=== PATIENT | male | born 1940 | race Caucasian/White ===

== ENCOUNTER 2022-04-27 09:01 | Outpatient (CLI) | payer MEDICARE, BC ==
[2022-04-27] MEDS ORDERED: Iopamidol 300 61% 100 ML VIAL FS ONE (13:20)
== END 2022-04-27 09:02 | disposition home or self-care (01) ==
LOC: CSHCT 09:01
PROVIDERS: ATTEND Family Medicine
DX: R31.0 Gross hematuria (principal); N28.1 Cyst of kidney, acquired; N40.0 Benign prostatic hyperplasia without lower urinary tract symptoms; N32.9 Bladder disorder, unspecified; K76.89 Other specified diseases of liver; K57.30 Diverticulosis of large intestine without perforation or abscess without bleeding
CPT/HCPCS: 74178; 82565; Q9967

== ENCOUNTER 2023-07-05 08:38 | Inpatient (IN) | payer MEDICARE, BC ==
[2023-07-05 09:21] LABS: #Basophils 0.1 10x3/uL (0.0-0.2); #Eosinphils 0.1 10x3/uL (0.0-0.5); #Monocytes 0.9 10x3/uL (0.0-1.1); #Neutrophils 6.9 10x3/uL (1.5-8.4); %Basophils 0.6 % (0.0-2.0); %Eosinophils 0.9 % (0.0-6.0); %Lymphocytes 10.1 % (18.0-47.0); %Monocytes 9.8 % (0.0-10.0); %Neutrophils 78.4 % (40.0-75.0); Hematocrit 41.4 % (38.8-50.0); Hemoglobin 14.2 g/dL (13.5-17.5); Mean Corpuscular HGB CONC 34.3 g/dL (32.0-36.0); Mean Corpuscular Hemoglobin 31.1 pg (27.0-33.0); Mean Corpuscular Volume 90.8 fl (81.2-95.1); Mean Platelet Volume 10.2 fl (7.4-10.4); Platelet Count 267 10x3/uL (150-450); RBC Distribution Width 12.6 % (11.5-14.5); Red Blood Cell (RBC) Count 4.56 10x6/uL (4.32-5.72); White Blood Cell (WBC) Count 8.8 10x3/uL (3.5-10.5)
[2023-07-05 09:22] LABS: INR-International Normal Ratio 1.1; PTT 30.7 sec (22.0-33.0); Prothrombin Time 12.1 sec (9.5-12.1)
[2023-07-05 09:31] LABS: ALT (SGPT) 12 U/L (8-55); AST (SGOT) 21 U/L (5-34); Albumin 3.8 g/dL (3.4-4.8); Alkaline Phosphatase 66 U/L (40-110); Anion Gap 17 mmol/L (10-20); BUN (Urea Nitrogen) 27 mg/dL (8.4-25.7); Calc. Creatinine Clearance 0 mL/min (70-130); Carbon Dioxide 23 mmol/L (23-31); Chloride 104 mmol/L (98-107); Estimated GFR 69; Globulin 2.6 g/dL (2.4-3.5); Glucose 121 mg/dL (83-110); Potassium 3.8 mmol/L (3.5-5.1); Protein, Total 6.4 g/dL (5.8-8.1); Sodium 140 mmol/L (136-145)
[2023-07-05 09:32] LABS: Troponin I 0.019 ng/mL (< 0.028)
[2023-07-05] MEDS ORDERED: Aspirin Chewable 81 MG TAB ONE (09:46)
[2023-07-05 10:20] LABS: Bilirubin Neg (Negative); Blood, Urine 25 (Negative); Clarity Clear (Clear); Glucose, Urine (Dipstick) Normal (Negative); Ketone, Urine 50 mg/dL (Negative); Leukocyte 25 (Negative); Nitrite Negative (Negative); Protein, Urine (Dipstick) 30 mg/dl (Neg-Trace)
[2023-07-05 10:45] LABS: Bacteria/HPF 1+ HPF (None Seen); CAUTI Indications for Culture Alt mental st,lethar; RBC/HPF 0-3 HPF (0-3); Squamous Epithelial 0-3 HPF (0-3)
[2023-07-05 10:47] LABS: Urine Culture Reflex Yes Yes
[2023-07-05] MEDS ORDERED: Ondansetron ODT 4 MG TAB PO PRN (12:18)
[2023-07-05] MEDS ORDERED: Acetaminophen 325 MG TAB PO PRN (12:18)
[2023-07-05] MEDS ORDERED: hydrALAZINE 20 MG/ML VIAL SLOW IVP PRN (12:18)
[2023-07-05] MEDS ORDERED: Acetaminophen 650 MG Suppository PR PRN (12:18)
[2023-07-05] MEDS ORDERED: Ondansetron PF 4 MG/2 ML Vial IVP PRN (12:18)
[2023-07-05 13:03] LABS: Troponin I 0.016 ng/mL (< 0.028)
[2023-07-05] MEDS ORDERED: Iopamidol 370 76% 100 ML VIAL ONE (14:22)
[2023-07-05 15:23] LABS: Troponin I 0.022 ng/mL (< 0.028)
[2023-07-05 16:51] VITALS: BMI 24.3
[2023-07-05] MEDS ORDERED: cefTRIAXone\\ROCEPHIN 1 GM in Sodium Chloride 0.9% 100 ML IVPB SCH (18:30)
[2023-07-05] MEDS ORDERED: FLU VACC QS2023(65UP)/MF59C/PF 60 MCG/0.5 ML SYRINGE IM ONE (20:00)
[2023-07-05] MEDS ORDERED: Atorvastatin Calcium 40 MG TAB PO SCH (21:00)
[2023-07-06 03:56] LABS: #Basophils 0.1 10x3/uL (0.0-0.2); #Eosinphils 0.1 10x3/uL (0.0-0.5); #Monocytes 0.7 10x3/uL (0.0-1.1); #Neutrophils 5.5 10x3/uL (1.5-8.4); %Basophils 0.8 % (0.0-2.0); %Eosinophils 1.6 % (0.0-6.0); %Lymphocytes 13.9 % (18.0-47.0); %Monocytes 9.2 % (0.0-10.0); %Neutrophils 74.1 % (40.0-75.0); Hematocrit 41.9 % (38.8-50.0); Hemoglobin 14.3 g/dL (13.5-17.5); Mean Corpuscular HGB CONC 34.1 g/dL (32.0-36.0); Mean Corpuscular Hemoglobin 31.3 pg (27.0-33.0); Mean Corpuscular Volume 91.7 fl (81.2-95.1); Mean Platelet Volume 10.7 fl (7.4-10.4); Platelet Count 237 10x3/uL (150-450); RBC Distribution Width 12.4 % (11.5-14.5); Red Blood Cell (RBC) Count 4.57 10x6/uL (4.32-5.72); White Blood Cell (WBC) Count 7.5 10x3/uL (3.5-10.5)
[2023-07-06 04:22] LABS: Anion Gap 12 mmol/L (10-20); BUN (Urea Nitrogen) 18 mg/dL (8.4-25.7); Calc. Creatinine Clearance 76 mL/min (70-130); Calcium 8.6 mg/dL (7.8-10.44); Carbon Dioxide 26 mmol/L (23-31); Cardiac Risk 2.7 (Less than 4.5); Chloride 106 mmol/L (98-107); Cholesterol 152 mg/dl (< 200 Desired); Estimated GFR 88; Glucose 98 mg/dL (83-110); HDL Cholesterol 57 mg/dL (>60 Neg Risk); LDL Cholesterol, Calculated 83 mg/dL; Potassium 3.9 mmol/L (3.5-5.1); Sodium 140 mmol/L (136-145); Triglycerides 61 mg/dL (Less than 150)
[2023-07-06] MEDS ORDERED: Aspirin 81 mg Enteric Coated Tablet PO SCH (09:00)
[2023-07-06 12:55] VITALS: BP 176/81; TEMP 97.6
[2023-07-07] MEDS ORDERED: Tamsulosin HCl 0.4 MG CAP PO SCH (09:00)
== END 2023-07-06 12:45 | disposition home or self-care (01) | DRG 69 ==
LOC: CSHERS 08:38 → CSHTELE 10:47 → OBSVTOIN 07-06 09:24
PROVIDERS: ADMIT Internal Medicine; ATTEND Internal Medicine
DX: G45.9 Transient cerebral ischemic attack, unspecified (principal); N13.6 Pyonephrosis; G81.91 Hemiplegia, unspecified affecting right dominant side; I10 Essential (primary) hypertension; M89.9 Disorder of bone, unspecified; F32.A Depression, unspecified; C61 Malignant neoplasm of prostate; Z90.49 Acquired absence of other specified parts of digestive tract; Z90.89 Acquired absence of other organs; Z79.899 Other long term (current) drug therapy; Z79.82 Long term (current) use of aspirin
CPT/HCPCS: 0042T; 36415; 36416; 70450; 70551; 74176; 76770; 80048; 80053; 80061; 81001; 84484; 85025; 85610; 85730; 87086; 93005; 93306; J0696; J1650; J3490; Q9967

== ENCOUNTER 2023-11-30 09:52 | Outpatient (CLI) | payer MEDICARE | END 2023-11-30 09:53 | disposition home or self-care (01) | LOC: CSHULT 09:52 | PROVIDERS: ATTEND Urology | DX: N50.89 Other specified disorders of the male genital organs (principal); N13.2 Hydronephrosis with renal and ureteral calculous obstruction; N50.3 Cyst of epididymis; N13.30 Unspecified hydronephrosis | CPT/HCPCS: 76770; 76870 ==

== ENCOUNTER 2025-05-13 12:30 | Outpatient (CLI) | payer MEDICARE | END 2025-05-13 12:31 | disposition home or self-care (01) | LOC: CSHWCC 12:30 | PROVIDERS: ATTEND Nurse Practitioner Family | DX: N30.41 Irradiation cystitis with hematuria (principal) | CPT/HCPCS: G0277 ==

== ENCOUNTER 2025-05-14 16:06 | Outpatient (CLI) | payer MEDICARE | END 2025-05-14 16:07 | disposition home or self-care (01) | LOC: CSHWCC 16:06 | PROVIDERS: ATTEND Nurse Practitioner Family | DX: N30.41 Irradiation cystitis with hematuria (principal) | CPT/HCPCS: G0277 ==

== ENCOUNTER 2025-05-15 12:38 | Outpatient (CLI) | payer MEDICARE | END 2025-05-15 12:39 | disposition home or self-care (01) | LOC: CSHWCC 12:38 | PROVIDERS: ATTEND Nurse Practitioner Family | DX: N30.41 Irradiation cystitis with hematuria (principal) | CPT/HCPCS: G0277 ==

== ENCOUNTER 2025-05-16 12:54 | Outpatient (CLI) | payer MEDICARE | END 2025-05-16 12:55 | disposition home or self-care (01) | LOC: CSHWCC 12:54 | PROVIDERS: ATTEND Nurse Practitioner Family | DX: N30.41 Irradiation cystitis with hematuria (principal) | CPT/HCPCS: G0277 ==

== ENCOUNTER 2025-05-17 13:40 | Outpatient (CLI) | payer MEDICARE | END 2025-05-17 13:41 | disposition home or self-care (01) | LOC: CSHWCC 13:40 | PROVIDERS: ATTEND Nurse Practitioner Family | DX: T70.0XXD Otitic barotrauma, subsequent encounter (principal); N30.41 Irradiation cystitis with hematuria | CPT/HCPCS: G0277 ==

== ENCOUNTER 2025-05-24 12:49 | Outpatient (CLI) | payer MEDICARE | END 2025-05-24 12:50 | disposition home or self-care (01) | LOC: CSHWCC 12:49 | PROVIDERS: ATTEND Nurse Practitioner Family | DX: T70.0XXD Otitic barotrauma, subsequent encounter (principal); N30.41 Irradiation cystitis with hematuria ==

== ENCOUNTER 2025-05-27 12:45 | Outpatient (CLI) | payer MEDICARE | END 2025-05-27 12:46 | disposition home or self-care (01) | LOC: CSHWCC 12:45 | PROVIDERS: ATTEND Nurse Practitioner Family | DX: T70.0XXD Otitic barotrauma, subsequent encounter (principal); N30.41 Irradiation cystitis with hematuria ==

== ENCOUNTER 2025-05-28 12:49 | Outpatient (CLI) | payer MEDICARE | END 2025-05-28 12:50 | disposition home or self-care (01) | LOC: CSHWCC 12:49 | PROVIDERS: ATTEND Nurse Practitioner Family | DX: N30.41 Irradiation cystitis with hematuria (principal) | CPT/HCPCS: G0277 ==

== ENCOUNTER 2025-05-29 12:35 | Outpatient (CLI) | payer MEDICARE | END 2025-05-29 12:36 | disposition home or self-care (01) | LOC: CSHWCC 12:35 | PROVIDERS: ATTEND Nurse Practitioner Family | DX: N30.41 Irradiation cystitis with hematuria (principal) | CPT/HCPCS: G0277 ==

== ENCOUNTER 2025-05-30 08:44 | Outpatient (CLI) | payer MEDICARE | END 2025-05-30 08:45 | disposition home or self-care (01) | LOC: CSHWCC 08:44 | PROVIDERS: ATTEND Nurse Practitioner Family | DX: N30.41 Irradiation cystitis with hematuria (principal) | CPT/HCPCS: G0277 ==

== ENCOUNTER 2025-06-04 12:33 | Outpatient (CLI) | payer MEDICARE | END 2025-06-04 12:34 | disposition home or self-care (01) | LOC: CSHWCC 12:33 | PROVIDERS: ATTEND Nurse Practitioner Family | DX: N30.41 Irradiation cystitis with hematuria (principal) | CPT/HCPCS: G0277 ==

== ENCOUNTER 2025-06-05 12:36 | Outpatient (CLI) | payer MEDICARE | END 2025-06-05 12:37 | disposition home or self-care (01) | LOC: CSHWCC 12:36 | PROVIDERS: ATTEND Nurse Practitioner Family | DX: N30.41 Irradiation cystitis with hematuria (principal) | CPT/HCPCS: G0277 ==

== ENCOUNTER 2025-06-06 12:53 | Outpatient (CLI) | payer MEDICARE | END 2025-06-06 12:54 | disposition home or self-care (01) | LOC: CSHWCC 12:53 | PROVIDERS: ATTEND Nurse Practitioner Family | DX: N30.41 Irradiation cystitis with hematuria (principal) | CPT/HCPCS: G0277 ==

== ENCOUNTER 2025-06-07 13:32 | Outpatient (CLI) | payer MEDICARE | END 2025-06-07 13:33 | disposition home or self-care (01) | LOC: CSHWCC 13:32 | PROVIDERS: ATTEND Nurse Practitioner Family | DX: N30.41 Irradiation cystitis with hematuria (principal) | CPT/HCPCS: G0277 ==

== ENCOUNTER 2025-06-10 13:35 | Outpatient (CLI) | payer MEDICARE | END 2025-06-10 13:36 | disposition home or self-care (01) | LOC: CSHWCC 13:35 | PROVIDERS: ATTEND Nurse Practitioner Family | DX: N30.41 Irradiation cystitis with hematuria (principal) | CPT/HCPCS: G0277 ==

== ENCOUNTER 2025-06-11 12:38 | Outpatient (CLI) | payer MEDICARE | END 2025-06-11 12:39 | disposition home or self-care (01) | LOC: CSHWCC 12:38 | PROVIDERS: ATTEND Nurse Practitioner Family | DX: N30.41 Irradiation cystitis with hematuria (principal) | CPT/HCPCS: G0277 ==

== ENCOUNTER 2025-06-12 12:34 | Outpatient (CLI) | payer MEDICARE | END 2025-06-12 12:35 | disposition home or self-care (01) | LOC: CSHWCC 12:34 | PROVIDERS: ATTEND Nurse Practitioner Family | DX: N30.41 Irradiation cystitis with hematuria (principal) | CPT/HCPCS: G0277 ==

== ENCOUNTER 2025-06-13 12:54 | Outpatient (CLI) | payer MEDICARE | END 2025-06-13 12:55 | disposition home or self-care (01) | LOC: CSHWCC 12:54 | PROVIDERS: ATTEND Nurse Practitioner Family | DX: N30.41 Irradiation cystitis with hematuria (principal) | CPT/HCPCS: G0277 ==

== ENCOUNTER 2025-06-14 13:06 | Outpatient (CLI) | payer MEDICARE | END 2025-06-14 13:07 | disposition home or self-care (01) | LOC: CSHWCC 13:06 | PROVIDERS: ATTEND Nurse Practitioner Family | DX: N30.41 Irradiation cystitis with hematuria (principal) | CPT/HCPCS: G0277 ==

== ENCOUNTER 2025-06-17 12:31 | Outpatient (CLI) | payer MEDICARE | END 2025-06-17 12:32 | disposition home or self-care (01) | LOC: CSHWCC 12:31 | PROVIDERS: ATTEND Nurse Practitioner Family | DX: N30.41 Irradiation cystitis with hematuria (principal) | CPT/HCPCS: G0277 ==

== ENCOUNTER 2025-06-18 12:34 | Outpatient (CLI) | payer MEDICARE | END 2025-06-18 12:35 | disposition home or self-care (01) | LOC: CSHWCC 12:34 | PROVIDERS: ATTEND Nurse Practitioner Family | DX: N30.41 Irradiation cystitis with hematuria (principal) | CPT/HCPCS: G0277 ==

== ENCOUNTER 2025-06-19 12:35 | Outpatient (CLI) | payer MEDICARE | END 2025-06-19 12:36 | disposition home or self-care (01) | LOC: CSHWCC 12:35 | PROVIDERS: ATTEND Nurse Practitioner Family | DX: N30.41 Irradiation cystitis with hematuria (principal) | CPT/HCPCS: G0277 ==

== ENCOUNTER 2025-06-24 12:49 | Outpatient (CLI) | payer MEDICARE | END 2025-06-24 12:50 | disposition home or self-care (01) | LOC: CSHWCC 12:49 | PROVIDERS: ATTEND Nurse Practitioner Family | DX: N30.41 Irradiation cystitis with hematuria (principal) | CPT/HCPCS: G0277 ==

== ENCOUNTER 2025-06-26 12:48 | Outpatient (CLI) | payer MEDICARE | END 2025-06-26 12:49 | disposition home or self-care (01) | LOC: CSHWCC 12:48 | PROVIDERS: ATTEND Nurse Practitioner Family | DX: N30.41 Irradiation cystitis with hematuria (principal) | CPT/HCPCS: G0277 ==

== ENCOUNTER 2025-06-27 12:30 | Outpatient (CLI) | payer MEDICARE | END 2025-06-27 12:31 | disposition home or self-care (01) | LOC: CSHWCC 12:30 | PROVIDERS: ATTEND Nurse Practitioner Family | DX: N30.41 Irradiation cystitis with hematuria (principal) | CPT/HCPCS: G0277 ==

== ENCOUNTER 2025-06-28 12:39 | Outpatient (CLI) | payer MEDICARE | END 2025-06-28 12:40 | disposition home or self-care (01) | LOC: CSHWCC 12:39 | PROVIDERS: ATTEND Nurse Practitioner Family | DX: N30.41 Irradiation cystitis with hematuria (principal) | CPT/HCPCS: G0277 ==

== ENCOUNTER 2025-07-03 12:37 | Outpatient (CLI) | payer MEDICARE | END 2025-07-03 12:38 | disposition home or self-care (01) | LOC: CSHWCC 12:37 | PROVIDERS: ATTEND Nurse Practitioner Family | DX: N30.41 Irradiation cystitis with hematuria (principal) | CPT/HCPCS: G0277 ==

== ENCOUNTER 2025-07-04 12:42 | Outpatient (CLI) | payer MEDICARE | END 2025-07-04 12:43 | disposition home or self-care (01) | LOC: CSHWCC 12:42 | PROVIDERS: ATTEND Nurse Practitioner Family | DX: N30.41 Irradiation cystitis with hematuria (principal) | CPT/HCPCS: G0277 ==

== ENCOUNTER 2025-07-05 12:30 | Outpatient (CLI) | payer MEDICARE | END 2025-07-05 12:31 | disposition home or self-care (01) | LOC: CSHWCC 12:30 | PROVIDERS: ATTEND Nurse Practitioner Family | DX: N30.41 Irradiation cystitis with hematuria (principal) | CPT/HCPCS: G0277 ==

== ENCOUNTER 2025-07-11 13:20 | Outpatient (CLI) | payer MEDICARE | END 2025-07-11 13:21 | disposition home or self-care (01) | LOC: CSHWCC 13:20 | PROVIDERS: ATTEND Nurse Practitioner Family | DX: N30.41 Irradiation cystitis with hematuria (principal) | CPT/HCPCS: G0277 ==

== ENCOUNTER 2025-07-12 12:32 | Outpatient (CLI) | payer MEDICARE | END 2025-07-12 12:33 | disposition home or self-care (01) | LOC: CSHWCC 12:32 | PROVIDERS: ATTEND Nurse Practitioner Family | DX: N30.41 Irradiation cystitis with hematuria (principal) | CPT/HCPCS: G0277 ==

== ENCOUNTER 2025-07-15 13:10 | Outpatient (CLI) | payer MEDICARE | END 2025-07-15 13:11 | disposition home or self-care (01) | LOC: CSHWCC 13:10 | PROVIDERS: ATTEND Nurse Practitioner Family | DX: N30.41 Irradiation cystitis with hematuria (principal) | CPT/HCPCS: G0277 ==

== ENCOUNTER 2025-07-16 12:39 | Outpatient (CLI) | payer MEDICARE | END 2025-07-16 12:40 | disposition home or self-care (01) | LOC: CSHWCC 12:39 | PROVIDERS: ATTEND Nurse Practitioner Family | DX: N30.41 Irradiation cystitis with hematuria (principal) | CPT/HCPCS: G0277 ==

== ENCOUNTER 2025-07-17 12:50 | Outpatient (CLI) | payer MEDICARE | END 2025-07-17 12:51 | disposition home or self-care (01) | LOC: CSHWCC 12:50 | PROVIDERS: ATTEND Nurse Practitioner Family | DX: N30.41 Irradiation cystitis with hematuria (principal) | CPT/HCPCS: G0277 ==

== ENCOUNTER 2025-07-18 12:50 | Outpatient (CLI) | payer MEDICARE | END 2025-07-18 12:51 | disposition home or self-care (01) | LOC: CSHWCC 12:50 | PROVIDERS: ATTEND Nurse Practitioner Family | DX: N30.41 Irradiation cystitis with hematuria (principal) | CPT/HCPCS: G0277 ==

== ENCOUNTER 2025-07-19 12:35 | Outpatient (CLI) | payer MEDICARE | END 2025-07-19 12:36 | disposition home or self-care (01) | LOC: CSHWCC 12:35 | PROVIDERS: ATTEND Nurse Practitioner Family | DX: N30.41 Irradiation cystitis with hematuria (principal) | CPT/HCPCS: G0277 ==

== ENCOUNTER 2025-07-22 12:58 | Outpatient (CLI) | payer MEDICARE | END 2025-07-22 12:59 | disposition home or self-care (01) | LOC: CSHWCC 12:58 | PROVIDERS: ATTEND Nurse Practitioner Family | DX: N30.41 Irradiation cystitis with hematuria (principal) | CPT/HCPCS: G0277 ==

== ENCOUNTER 2025-07-26 08:07 | Outpatient (CLI) | payer MEDICARE | END 2025-07-26 08:08 | disposition home or self-care (01) | LOC: CSHWCC 08:07 | PROVIDERS: ATTEND Nurse Practitioner Family | DX: N30.41 Irradiation cystitis with hematuria (principal) | CPT/HCPCS: G0277 ==

== ENCOUNTER 2025-07-29 12:35 | Outpatient (CLI) | payer MEDICARE | END 2025-07-29 12:36 | disposition home or self-care (01) | LOC: CSHWCC 12:35 | PROVIDERS: ATTEND Nurse Practitioner Family | DX: N30.41 Irradiation cystitis with hematuria (principal) | CPT/HCPCS: G0277 ==

== ENCOUNTER 2025-07-31 12:32 | Outpatient (CLI) | payer MEDICARE | END 2025-07-31 12:33 | disposition home or self-care (01) | LOC: CSHWCC 12:32 | PROVIDERS: ATTEND Nurse Practitioner Family | DX: N30.41 Irradiation cystitis with hematuria (principal) | CPT/HCPCS: G0277 ==

== ENCOUNTER 2025-08-01 13:23 | Outpatient (CLI) | payer MEDICARE | END 2025-08-01 13:24 | disposition home or self-care (01) | LOC: CSHWCC 13:23 | PROVIDERS: ATTEND Nurse Practitioner Family | DX: N30.41 Irradiation cystitis with hematuria (principal) | CPT/HCPCS: G0277 ==

== ENCOUNTER 2025-08-06 12:28 | Outpatient (CLI) | payer MEDICARE | END 2025-08-06 12:29 | disposition home or self-care (01) | LOC: CSHWCC 12:28 | PROVIDERS: ATTEND Nurse Practitioner Family | DX: N30.41 Irradiation cystitis with hematuria (principal) | CPT/HCPCS: G0277 ==

== ENCOUNTER 2025-08-13 12:39 | Outpatient (CLI) | payer MEDICARE | END 2025-08-13 12:40 | disposition home or self-care (01) | LOC: CSHWCC 12:39 | PROVIDERS: ATTEND Nurse Practitioner Family | DX: N30.41 Irradiation cystitis with hematuria (principal) | CPT/HCPCS: G0277 ==